=== PATIENT | female | born 1980 | race Caucasian/White ===

== ENCOUNTER 2021-05-28 14:01 | Outpatient (CLI) | payer OTHER ==
[2021-06-02 08:21] LABS: HCV RNA QUANT RT PCR <15 NOT DETECTED IU/mL
== END 2021-05-28 14:02 | disposition home or self-care (01) ==
LOC: LAB.S 14:01
DX: R76.8 Other specified abnormal immunological findings in serum (principal)
CPT/HCPCS: 36415; 87522